=== PATIENT | female | born 1955 | race African-American/Black ===

== ENCOUNTER 2020-03-15 23:46 | Emergency (ER) | payer MEDICAID ==
[~2020-03-15] VITALS: Ht 172.7 cm; Wt 82.0 kg
[2020-03-16 00:02] VITALS: BP 157/88
[2020-03-16] MEDS ORDERED: ACETAMINOPHEN 325MG TABLET PO ONE (00:45)
== END 2020-03-16 01:58 | disposition home or self-care (01) ==
LOC: ER 23:46
DX: R51.9 Headache, unspecified (principal); E11.9 Type 2 diabetes mellitus without complications; I10 Essential (primary) hypertension; F17.200 Nicotine dependence, unspecified, uncomplicated; V43.52XA Car driver injured in collision with other type car in traffic accident, initial encounter; Y93.89 Activity, other specified; Y92.410 Unspecified street and highway as the place of occurrence of the external cause
CPT/HCPCS: 73110; 99284